=== PATIENT | female | born 1975 | race African-American/Black ===

== ENCOUNTER 2023-05-07 15:25 | Emergency (ER) | payer BC, SELFPAY ==
[2023-05-07] VITALS (8 sets, daily range): BP systolic 116–150; BP diastolic 72–91; PULSE 98–110; RESP 16–18; TEMP 37.2–37.5; O2SAT 96–99
--- NOTE | ~2023-05-07 | XR_ITS ---
EXAMINATION: XR chest 2V DATE: 05/07/2023 15:57 INDICATION: Cough. TECHNIQUE: Frontal and lateral views of the chest were obtained. COMPARISON: None. FINDINGS: There is no pneumonia, pleural effusion, or pneumothorax. The heart size is normal. IMPRESSION: 1. No acute cardiopulmonary disease. 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
--- NOTE | ~2023-05-07 | CT_ITS ---
EXAMINATION: CT chest abdomen pelvis w con DATE: 05/07/2023 17:12 INDICATION: Cough. Kidney pain. TECHNIQUE: Computed tomography (CT) of the chest and abdomen was performed with 100 mL Omnipaque 350 intravenous contrast. Pelvis The dose-length product was 418.92 mGy-cm. COMPARISON: None FINDINGS: CHEST CT: There is mild emphysema. There is a 4 mm nodule at right major fissure, likely benign. No pleural eff usion. There is a 2.7 cm nodule in right thyroid lobe. The heart size is normal. There is a small per icardial effusion. There is mild thoracic spondylosis. ABDOMEN CT: The liver, gallbladder, spleen, pancreas, and adrenal glands are normal. There is cortical thinning o f the kidneys. There is a 2 mm stone in right kidney. There is mild left hydronephrosis. There is a 3 mm stone in proximal left ureter. There are no dilated loops of bowel. The appendix is normal. There are no pathologically enlarged lymph nodes. There is physiologic fluid in the pelvis. There is a 4.2 cm uterine fibroid. There is severe degenerative disc disease at L4-L5. IMPRESSION: 1. 3 mm stone in proximal left ureter with mild left hydronephrosis. 2. Thyroid nodule. Thyroid ultrasound is recommended for risk stratification. 3. Mild emphysema. 4. Small pericardial effusion. Reviewed, dictated and finalized at location A. [employer]
--- NOTE | 2023-05-07 15:43 | ECG_ITS ---
Measurements Intervals [place] Rate: 97 P: 73 UT: 136 QRS: 54 QRSD: 98 T: 73 QT: 338 QTc: 431 Interpretive Statements SINUS RHYTHM LEFT ATRIAL ENLARGEMENT [-0.15mV P-WAVE IN V1/V2] MODERATE T-WAVE ABNORMALITY, CONSIDER ANTERIOR ISCHEMIA [-0.1+ mV T-WAVE IN V3/V4] ABNORMAL ECG NO PREVIOUS ECG AVAILABLE FOR COMPARISON Electronically Signed On 05-08-2023 11:55:51 NIGHT CLERK by Torrey Sarmiento M.D.
--- NOTE | 2023-05-07 15:43 | ED.GENADULT ---
HPI - General Adult General Chief complaint: Back Pain/Injury Stated complaint: BACK PAIN Time Seen by Provider: 05/07/23 15:31 History of Present Illness HPI narrative: Patient is a 48 year old female with history of epilepsy, maintained on Keppra, here with flank pain, chills, cough. Patient notes that she has had flank pain for about 3 days. The pain began on the left flank and now has progressed to involve her right flank as well as diffusely across her abdomen. She has some associated increased urinary frequency, no dysuria, no hematuria. No history of recurrent UTIs or kidney stones. LMP was about 17 years ago when she had her daughter. She has had associated subjective fever and chills. Of note, she also has noticed a cough, which has been persistent and seemed to predate the flank pain. Cough is non productive. No known sick contacts. No chest pain, no shortness of breath. History of multiple prior hernia repairs, believes she still has her gallbladder and appendix. Related Data Home Medications Medication Instructions Recorded Confirmed aripiprazole 15 mg tablet 15 mg PO DAILY 05/07/23 05/07/23 metoprolol succinate 25 mg 25 mg PO DAILY 05/07/23 05/07/23 tablet,extended release 24 hr Allergies Allergy/AdvReac Type Severity Reaction Status Date / Time Penicillins Allergy Intermediate swelling Verified 05/07/23 16:22 Review of Systems Review of Systems: All systems reviewed & are unremarkable except as noted in HPI and below Exam Narrative: GENERAL: Ill-appearing, well-nourished, and in no acute distress. HEAD: Normocephalic, atraumatic. EYES: PERRLA and EOMI. ENT: Nares clear. Mucous membranes moist. NECK: Supple. CHEST: Clear to auscultation. No respiratory distress. HEART: Tachycardic. Normal peripheral pulses. ABDOMEN: Soft, diffusely tender without rebound or guarding, nondistended. Bilateral CVA tenderness. EXTREMITIES: Normal range of motion. No edema. SKIN: Warm, dry, no rash. NEURO: No focal deficits. Alert and oriented x3. PSYCH: Normal mood and affect. Course Course Emergency Course: Chart review performed. Patient is a 48 year old female here with fever, flank pain, cough. No prior visits in our system. Patient seen and evaluated. Non toxic appearing. Alert, oriented. Does appear ill, concern for possible sepsis, suspect either pulmonary or urological source. Will do sepsis lab work IVF, morphine, zofran. CXR and CT abdomen pelvis ordered. Patient agreeable to plan. Lab work and imaging reviewed. WBC of 11.5, CRP elevated at 7.8, remainder of lab work grossly unremarkable. UA shows 1+ leukocytes, otherwise normal. CT shows 3mm stone on the left side with mild hydronephrosis, otherwise normal. Given symptoms in presence of stone will prophylactically treat that urine however I am not overly convinced that it is infected. Patient reevaluated after meds and fluids, feels great, pain free. Will start on ciprofloxacin given anaphylactic allergy to both penicillins and bactrim. The results of pertinent diagnostic studies and exam findings were discussed. The patient?s provisional diagnosis and plan of care were discussed with the patient and present family. The patient and/or present family expressed understanding of the diagnosis and plan. The nurse was instructed to provide written instructions and appropriate follow-up information. The patient understands their need and responsibility to obtain additional follow-up as instructed. The risks of medications administered and prescribed were discussed with the patient and family present. Vital Signs Vital signs: Vital Signs Temperature 99.5 F 05/07/23 15:25 Pulse Rate 110 H 05/07/23 15:25 Respiratory Rate 18 05/07/23 15:25 Blood Pressure 147/91 H 05/07/23 15:25 Pulse Oximetry 97 05/07/23 15:25 Oxygen Delivery Room Air 05/07/23 15:25 Temperature 99.5 F 05/07/23 15:25 Pulse Rate 110 H 05/07/23 15:25 Respiratory Rate 18
--- NOTE | 2023-05-07 15:50 | PC.NURSE ---
patient taken down to Xray
[2023-05-07 16:21] LABS: Basophils Absolute Auto 0.03 K/mm3 (0.00-0.10); Basophils Percent Auto 0.3 % (0.0-1.0); Eosinophils Absolute Auto 0.04 K/mm3 (0.02-0.50); Eosinophils Percent Auto 0.3 % (1.0-6.0); Hematocrit 40.5 % (35.0-49.0); Immature Granulocyte Absolute 0.03 K/mm3 (0.00-0.00); Immature Granulocyte Percent A 0.3 % (0.0-0.0); Lymphocytes Percent Auto 14.7 % (18.0-42.0); Mean Corpuscular HGB Conc 32.1 g/dL (32.0-36.0); Mean Corpuscular Hemoglobin 28.2 pg (27.0-31.0); Mean Corpuscular Volume 87.9 fL (78.0-102.0); Mean Platelet Volume 9.6 fl (9.2-11.8); Monocytes Absolute Auto 0.94 K/mm3 (0.10-0.90); Monocytes Percent Auto 8.2 % (2.0-11.0); Neutrophils Absolute Auto 8.8 K/mm3 (1.7-7.2); Neutrophils Percent Auto 76.2 % (50.0-70.0); Platelet Count Result 266 K/mm3 (150-420); Red Blood Count 4.61 M/mm3 (4.20-5.40); Red Cell Distribution Width 14.3 % (11.6-14.4); White Blood Count 11.5 K/mm3 (4.8-10.8)
[2023-05-07] MEDS: LACTATED RINGERS 1,000 ML 999 ML IV CONT ×2 (16:23→16:25)
[2023-05-07] MEDS: MORPHINE SULFATE (*CRX) 4 MG/ML INJ IV PUSH (16:25)
[2023-05-07] MEDS: ONDANSETRON INJ 4 MG/2 ML VIAL IV PUSH (16:25)
[2023-05-07 16:31] LABS: Pregnancy On Board Control Positive; Urine Pregnancy Test Negative
[2023-05-07 16:32] LABS: Appearance Urine Clear (Clear); Bilirubin Urine Negative (Negative); Blood Urine Trace-Intact (Negative); Color Urine Light Yellow (Yellow); Glucose Urine UA Negative (Negative); Ketones Urine Negative (Negative); Leukocyte Esterase Ur 1+ LEU/UL (Negative); Nitrate Urine Negative (Negative); Protein Urine Negative (Negative); Urobilinogen Urine 0.2 mg/dL (0.2-1.0)
[2023-05-07 16:34] LABS: Add Urine Microscopic? YES; Bacteria Urine Trace /hpf; RBC Urine 0-2 /hpf (0-2); Squamous Epithelial Cell Urine Rare /hpf (Few); WBC Urine 0-3 /hpf (0-3)
[2023-05-07 16:35] LABS: INR 0.9; Partial Thromboplastin Time 29.6 SEC (23.90-30.70)
[2023-05-07 16:38] LABS: Alanine Aminotransferase 35 U/L (14-59); Albumin Level 3.7 g/dL (3.4-5.0); Alkaline Phosphatase 61 U/L (46-116); Anion Gap 11 mmol/L (8-16); Aspartate Amino Transferase 23 U/L (15-37); Bilirubin,Total 0.5 mg/dL (0.00-1.00); Blood Urea Nitrogen 10 mg/dL (7-18); CRP 7.8 mg/dL (0.0-0.9); Calcium 9.2 mg/dL (8.5-10.1); Carbon Dioxide 30 mmol/L (21-32); Chloride 98 mmol/L (98-108); Estimated Glomerular Filt Rate > 60; Glucose 121 mg/dL (70-99); Osmolality Calculated 288 mOsm/kg (285-295); Potassium 3.6 mmol/L (3.5-5.1); Sodium 139 mmol/L (136-145); Total Protein 7.7 g/dL (6.4-8.2)
[2023-05-07 16:42] LABS: Lipase 19 U/L (16-77); Troponin I 5.3 ng/L (0.00-60.4)
[2023-05-07 16:57] LABS: SARS-CoV-2 RNA PCR Negative (Negative)
[2023-05-07 16:58] LABS: Influenza A QL RT-PCR Negative (Negative); Influenza B QL RT-PCR Negative (Negative); RSV RNA, RT-PCR Negative (Negative)
--- NOTE | 2023-05-08 15:38 | PC.NURSE ---
PRELIMINARY BLOOD CULTURE RESULTS: AEROBIC BOTTLE ONLY. ISOLATE 1: GRAM POSITIVE COCCI IN CLUSTERS. PER DR BROWN TO AWAIT C&S.
--- NOTE | 2023-05-09 20:49 | PC.NURSE ---
PRELIMINARY AEROBIC BLOOD CULTURE RESULT: STAPHYLOCOCCUS HOMINIS. PER DR BELTRÁN, NO CHANGE IN TX, TO AWAIT C&S. FINAL URINE CULTURE RESULTS: ISOLATE 1: GREATER THAN 100,000 CFU/ML OF ESCHERICHIA COLI. NO CHANGE IN TX PER DR BELTRÁN.
--- NOTE | 2023-05-11 12:49 | PC.NURSE ---
05/10/23 1400 message left for pt to call back to ER for blood culture results 05/11/23 1250 message left for pt to call back for results or to follow up with her primary
--- NOTE | 2023-05-12 07:13 | PC.NURSE ---
Addendum entered by Sayra Gan RN 05/12/23 12:24: DR AYALA Original Note: 05/12/23 0713 BLOOD CULTURES POSITIVE FOR STAPHYLOCOCCUS HOMINIS PER DR CAGLE NO FURTHER TREATMENT NEEDED PT SENT HOME ON CIPRO 500MG BID FOR 7 DAYS
--- NOTE | 2023-05-13 12:50 | PC.NURSE ---
FINAL BLOOD CULTURE RESULTS X1: NO GROWTH AFTER 5 DAYS. NO ACTION NEEDED.
== END 2023-05-07 18:45 | disposition home or self-care (01) ==
PROVIDERS: Emergency Provider Student in an Organized Health Care Education/Training Program; PCP Nurse Practitioner
DX: N20.0 Calculus of kidney (principal); Z20.822 Contact with and (suspected) exposure to COVID-19
CPT/HCPCS: 36415; 71046; 71260; 74177; 80053; 81001; 81025; 83605; 83690; 84484; 85025; 85610; 85730; 86140; 87040; 87077; 87086; 87088; 87147; 87181; 87186; 87637; 93005; 96361; 96374; 96375; 99284; J2270; J2405; J7120; Q9967